=== PATIENT | male | born 1985 | race Caucasian/White ===

== ENCOUNTER 2017-07-10 01:22 | Emergency (ER) | payer OTHER ==
[~2017-07-10] VITALS: Ht 177.8 cm; Wt 122.5 kg
--- NOTE | ~2017-07-10 | CT4 ---
[facility] A Service of [facility] RADIOLOGY TEXT RESULTS PATIENT: YAMILETH ALEXIS LOCATION: [facility] : [birth year] UNIT #: [id number] AGE: [address]: Karson Amato PAC SEX: M ORDER DR: [id number] [facility]. [place], [place] [address] [id number] MR#: [id number] Acc #: [id number] NAME: YAMILETH ALEXIS. : 1985 SEX: M STUDY DATE/TIME: 07/10/2017 2:59 UNIT: [facility] ROOM: STUDY DESCRIPTION: CT Abd and Pelv Wo Cont Attending Physician: Karson Amato P.A.-C. Ordering Physician: Karson Amato P.A.-C. Primary Care Physician: Karson Encarnacion M.D. MEDICAL IMAGING REPORT This report is preliminary unless electronic signature is present EXAM CT abdomen and pelvis, noncontrast kidney stone protocol, 07/10/2017 HISTORY 31-year-old male in the ED complaining of new onset severe right-side pain beginning earlier today. TECHNIQUE CT examination of the abdomen and pelvis without oral or IV contrast using kidney stone protocol. Technical limitations related to patient body habitus. This CT exam was performed with one or more of the following radiation dose reduction techniques: Automatic exposure control, adjustment of mA and/or kV according to patient size, and iterative reconstruction. FINDINGS ABDOMEN FINDINGS: Both kidneys, both ureters and the urinary bladder are normal in noncontrast appearance. No visible nephrolithiasis or evidence of urinary obstruction. Liver, pancreas and spleen are normal in size and appearance without contrast. Nondistended gallbladder. No bile duct dilatation. Small bowel and colon are normal in caliber and appearance, as imaged. Normal appendix. Normal caliber abdominal aorta. PELVIS FINDINGS: Urinary bladder, prostate and rectum are within normal limits. No inguinal hernia or significant abdominal wall hernia. Limited lung base images show no active disease. IMPRESSION Negative noncontrast CT examination of the abdomen and pelvis. [facility] A Service of [facility] RADIOLOGY TEXT RESULTS PATIENT: YAMILETH ALEXIS [id number] : [birth year] UNIT #: [id number] AGE: [address]: Karson Amato PAC SEX: M ORDER DR: Dictated by... Familia Siddiqui M.D. THIS IS AN ELECTRONICALLY VERIFIED REPORT Familia Siddiqui M.D. at 07/10/2017 5:07 PM LAURA/lukas TD: 07/10/2017 10:08 JOB #: [id number] MEDICAL IMAGING REPORT Page 1 of 1 COPY
[~2017-07-10 01:22] MED LIST: KLONOPIN PO; SEROQUEL PO; ZOLOFT PO
[2017-07-10 02:36] LABS: URINE SOURCE CLEAN CATCH
[2017-07-10 02:45] LABS: URINE APPEARANCE CLEAR; URINE BILIRUBIN NEG (NEG); URINE BLOOD NEG (NEG); URINE COLOR YELLOW; URINE GLUCOSE NEG (NEG); URINE KETONE NEG (NEG); URINE LEUKOCYTE ESTERASE NEG (NEG); URINE NITRATE NEG (NEG); URINE PROTEIN NEG (NEG); URINE SPECIFIC GRAVITY 1.025 (1.003-1.035); URINE UROBILINOGEN 0.2 MG/DL (NEG)
[2017-07-10 02:48] LABS: CULTURE INDICATED? NO
[2017-07-10 02:59] LABS: BASOPHIL# 0.1 X10e3 (0-0.3); BASOPHIL% 0.5 % (0-2.5); EOSINOPHIL# 0.5 X10e3 (0-0.7); EOSINOPHIL% 3.9 % (0.0-7.0); HEMATOCRIT 41.6 % (38.0-50.0); HEMOGLOBIN 13.8 gm/dL (13.0-16.0); LYMPHOCYTE# 2.8 X10e3 (1.0-3.5); LYMPHOCYTE% 22.6 % (17.0-45.0); MEAN CELL VOLUME 84.7 FL (83-96); MEAN CORPUSCULAR HEMOGLOBIN 28.2 PG (28-34); MEAN CORPUSCULAR HGB CONC 33.3 g/dL (30-36); MEAN PLATELET VOLUME 7.7 FL (6.5-11.5); MONOCYTE# 0.7 X10e3 (0-1.0); MONOCYTE% 5.3 % (3.0-12.0); NEUTROPHIL# 8.5 X10e3 (1.5-7.1); NEUTROPHIL% 67.7 % (40-75); PLATELET COUNT 299 X10e3 (140-420); RED BLOOD COUNT 4.91 X10e (3.90-5.60); RED CELL DISTRIBUTION WIDTH 12.9 % (11.0-15.5); WHITE BLOOD COUNT 12.6 X10e3 (4.0-10.5)
[2017-07-10 03:04] LABS: DIFF IND NO
[2017-07-10 03:22] LABS: BILIRUBIN,TOTAL 0.5 mg/dL (0.2-2.0); BUN/CREATININE RATIO 15.55; CALCIUM SERUM 9.2 mg/dL (8.4-10.2); CREATININE SERUM 0.9 mg/dL (0.6-1.4); GLOM FILT RATE Estimated 114.2 mL/min (>60); POTASSIUM 4.4 mmol/L (3.5-5.1); PROTEIN TOTAL SERUM 7.4 g/dL (6.0-8.3)
[2017-07-10 03:28] LABS: BILIRUBIN, DIRECT 0.1 mg/dL (0.0-0.2); BILIRUBIN,INDIRECT 0.4 mg/dL (0.0-0.9)
== END 2017-07-10 03:50 | disposition home or self-care (01) ==
LOC: CED 01:22
PROVIDERS: Physician Assistant
DX: M54.9 Dorsalgia, unspecified (principal); R10.9 Unspecified abdominal pain; K21.9 Gastro-esophageal reflux disease without esophagitis; E78.5 Hyperlipidemia, unspecified; F17.210 Nicotine dependence, cigarettes, uncomplicated; Z79.899 Other long term (current) drug therapy
CPT/HCPCS: 36415; 74176; 80048; 80076; 81003; 83690; 85025; 96361; 96374; 96375; 99284; J1885; J2270; J2405